=== PATIENT | female | born 1970 | race Caucasian/White ===

== ENCOUNTER → 2018-01-20 | Outpatient (CLI) | payer BC ==
--- NOTE | 2018-01-24 11:23 | MM ---
Reason for exam: screening (asymptomatic). Last mammogram was performed 7 years and 2 months ago. History: Reductions of both breasts, 2005. Took hormonal contraceptives for 10 years. Physical Findings: A clinical breast exam by your physician is recommended on an annual basis and results should be correlated with mammographic findings. MG Screening Mammo w CAD Bilateral CC and MLO view(s) were taken. XCCL view(s) were taken of the left breast. Prior study comparison: November 10, 2010, CAD bilateral diagnostic mammogram. The breast tissue is heterogeneously dense. This may lower the sensitivity of mammography. No suspicious abnormality. No significant changes when compared with prior studies. ASSESSMENT: Negative, BI-RAD 1 RECOMMENDATION: Routine screening mammogram of both breasts in 1 year.
== END | disposition home or self-care (01) ==
LOC: RADMAMWWP 15:15
PROVIDERS: ATTEND Internal Medicine
DX: Z12.31 Encounter for screening mammogram for malignant neoplasm of breast (principal)
CPT/HCPCS: 77067

== ENCOUNTER → 2019-08-07 | Outpatient (CLI) | payer BC ==
[2019-08-07 10:49] LABS: Basophils % (A) 0 %; Eosinophils # (A) 0.1 k/uL (0-0.7); Eosinophils % (A) 3 %; HCT 40.8 % (34.0-46.0); HGB 13.6 gm/dL (11.4-16.0); Lymphocytes # (A) 1.7 k/uL (1.0-4.8); Lymphocytes % (A) 38 %; MCH 31.8 pg (25.0-35.0); MCHC 33.3 g/dL (31.0-37.0); MCV 95.6 fL (80.0-100.0); Mean Platelet Volume 7.4; Monocytes # (A) 0.3 k/uL (0-1.0); Monocytes % (A) 7 %; Neutrophils # (A) 2.3 k/uL (1.3-7.7); Neutrophils % (A) 51 %; Platelet Count 272 k/uL (150-450); RBC 4.27 m/uL (3.80-5.40); RDW 12.1 % (11.5-15.5); WBC 4.5 k/uL (3.8-10.6)
[2019-08-07 17:08] LABS: African American GFR (CKD) 118.7 (60.0-200.0); Albumin 4.1 g/dL (3.80-4.90); Albumin/Globulin Ratio 2.28 (1.60-3.17); BUN/Creat Ratio 14.29 Ratio (12.00-20.00); Calcium 8.9 mg/dL (8.7-10.3); Chol/HDL Ratio 2.17; Globulin 1.8 g/dL (1.6-3.3); LDL Cholesterol,Calculated 74.4 mg/dL (0.0-131.0); Non-African American GFR(CKD) 102.5 (60.0-200.0); Potassium 4.1 mmol/L (3.5-5.5); Total Bilirubin 0.7 mg/dL (0.2-1.2); Total Protein 5.9 g/dL (6.2-8.2); VLDL Calculation 21.6 mg/dL (5.00-40.00)
== END | disposition home or self-care (01) ==
LOC: LABWHC1 10:06
PROVIDERS: ATTEND Internal Medicine
DX: Z00.01 Encounter for general adult medical examination with abnormal findings (principal)
CPT/HCPCS: 36415; 80053; 80061; 85025

== ENCOUNTER → 2019-09-13 | Outpatient (CLI) | payer BC ==
--- NOTE | 2019-09-14 11:33 | MM ---
Reason for exam: screening (asymptomatic). Last mammogram was performed 1 year and 8 months ago. History: Reductions of both breasts, 2005. Took hormonal contraceptives for 10 years. Physical Findings: A clinical breast exam by your physician is recommended on an annual basis and results should be correlated with mammographic findings. MG Screening Mammo w CAD Bilateral CC and MLO view(s) were taken. Prior study comparison: January 20, 2018, bilateral MG screening mammo w CAD. November 10, 2010, CAD bilateral diagnostic mammogram. The breast tissue is heterogeneously dense. This may lower the sensitivity of mammography. There are benign appearing round linear calcifications bilaterally. There is no discrete abnormality. ASSESSMENT: Benign, BI-RAD 2 RECOMMENDATION: Routine screening mammogram of both breasts in 1 year.
== END | disposition home or self-care (01) ==
LOC: RADMAMWWP 15:46
PROVIDERS: ATTEND Internal Medicine
DX: Z12.31 Encounter for screening mammogram for malignant neoplasm of breast (principal)
CPT/HCPCS: 77067

== ENCOUNTER → 2020-06-28 | Outpatient (CLI) | payer BC | END | disposition home or self-care (01) | LOC: LABWHC1 15:37 | PROVIDERS: ATTEND Internal Medicine | DX: R43.0 Anosmia (principal); R09.89 Other specified symptoms and signs involving the circulatory and respiratory systems | CPT/HCPCS: U0003; C9803 ==

== ENCOUNTER → 2021-01-14 | Outpatient (CLI) | payer BC ==
--- NOTE | 2021-01-15 10:35 | MM ---
Reason for exam: screening (asymptomatic). Last mammogram was performed 1 year and 4 months ago. History: Reductions of both breasts, 2005. Took hormonal contraceptives for 10 years. Physical Findings: A clinical breast exam by your physician is recommended on an annual basis and results should be correlated with mammographic findings. MG Screening Mammo w CAD Bilateral CC and MLO view(s) were taken. Prior study comparison: September 13, 2019, bilateral MG screening mammo w CAD. January 20, 2018, bilateral MG screening mammo w CAD. There are scattered fibroglandular densities. No significant changes when compared with prior studies. ASSESSMENT: Benign, BI-RAD 2 RECOMMENDATION: Routine screening mammogram of both breasts in 1 year.
== END | disposition home or self-care (01) ==
LOC: RADMAMWWP 07:41
PROVIDERS: ATTEND Internal Medicine
DX: Z12.31 Encounter for screening mammogram for malignant neoplasm of breast (principal)
CPT/HCPCS: 77067

== ENCOUNTER → 2022-04-24 | Outpatient (CLI) | payer BC ==
--- NOTE | 2022-05-01 17:50 | MM ---
Reason for Exam: Screening (asymptomatic). Last mammogram was performed 1 year(s) and 3 month(s) ago. Patient History: Menarche at age 15. First Full-Term at age 27. Hysterectomy at age 45. Postmenopausal. Patient used Hormonal Contraceptives for 10 years. 2004, Bilateral Reduction. Risk Values: Jennifer 5 year model risk: 1.0%. NCI Lifetime model risk: 8.9%. Prior Study Comparison: 11/10/2010 Bilateral Diagnostic Mammogram, [facility]. 01/20/2018 Bilateral Screening Mammogram, [facility]. 09/13/2019 Bilateral Screening Mammogram, [facility]. 01/14/2021 Bilateral Screening Mammogram, [facility]. Tissue Density: There are scattered fibroglandular densities. Findings: Analyzed By CAD. There is no suspicious group of microcalcifications or new suspicious mass in either breast. Overall Assessment: Negative, BI-RAD 1 Management: Screening Mammogram of both breasts in 1 year. A clinical breast exam by your physician is recommended on an annual basis and results should be correlated with mammographic findings. Electronically signed and approved by: Angel Waldrop DO
== END | disposition home or self-care (01) ==
LOC: RADMAMWWP 08:00
PROVIDERS: ATTEND Internal Medicine
DX: Z12.31 Encounter for screening mammogram for malignant neoplasm of breast (principal)
CPT/HCPCS: 77067

== ENCOUNTER 2024-02-22 11:32 | Emergency (ER) | payer BC ==
[2024-02-22 11:38] VITALS: TEMP 97.9
--- NOTE | 2024-02-22 11:56 | ED ---
Back Pain HPI - General Chief Complaint: Back Pain/Injury Stated Complaint: back pain Time Seen by Provider: 02/22/24 11:42 Source: patient, EMS, RN notes reviewed Mode of arrival: EMS Limitations: no limitations - History of Present Illness Initial Comments: 53-year-old female presents emergency department chief complaints of low back pain. Patient states she was reaching into a closet states there is reaching up when she started feeling tightness in her back states that she had increasing pain to the point where it is difficult to sit up, movement there is no comfortable position other than laying her back with her knees bent up. Patient denies any bowel, bladder and cons retention no saddle anesthesias no lower extremity symptoms including pain or paresthesias. - Related Data Previous Rx's Medication Instructions Recorded Cyclobenzaprine [Flexeril] 10 mg PO TID PRN #15 tab 02/22/24 HYDROcodone/APAP 7.5-325MG [[place] 1 tab PO Q6HR PRN 3 Days #12 tab 02/22/24 7.5-325] predniSONE 50 mg PO DAILY #5 tab 02/22/24 Allergies Allergy/AdvReac Type Severity Reaction Status Date / Time No Known Allergies Allergy Verified 02/22/24 13:49 Review of Systems ROS Statement: Those systems with pertinent positive or pertinent negative responses have been documented in the HPI. ROS Other: All systems not noted in ROS Statement are negative. Past Medical History Additional Past Medical History / Comment(s): hx. migraine headaches History of Any Multi-Drug Resistant Organisms: None Reported Past Surgical History: Breast Surgery, Hysterectomy, Orthopedic Surgery Additional Past Surgical History / Comment(s): breast reduction Past Anesthesia/Blood Transfusion Reactions: No Reported Reaction Past Psychological History: No Psychological Hx Reported Smoking Status: Former smoker Past Alcohol Use History: Occasional Past Drug Use History: None Reported - Past Family History Mother Family Medical History: No Reported History General Exam Limitations: no limitations General appearance: alert, in no apparent distress Head exam: Present: atraumatic, normocephalic, normal inspection Neck exam: Present: normal inspection, full ROM. Absent: tenderness, meningismus, lymphadenopathy Respiratory exam: Present: normal lung sounds bilaterally. Absent: respiratory distress, wheezes, rales, rhonchi, stridor Cardiovascular Exam: Present: regular rate, normal rhythm, normal heart sounds. Absent: systolic murmur, diastolic murmur, rubs, gallop, clicks GI/Abdominal exam: Present: soft, normal bowel sounds. Absent: distended, tenderness, guarding, rebound, rigid Extremities exam: Present: normal inspection, full ROM, normal capillary refill, other (Pulses and strength equal bilaterally lower extremity equal color, equal warmth). Absent: tenderness, pedal edema, joint swelling, calf tenderness Back exam: Present: tenderness, muscle spasm, paraspinal tenderness. Absent: full ROM (Pain with range of motion), vertebral tenderness Neurological exam: Present: reflexes normal. Absent: motor sensory deficit Course Vital Signs 02/22/24 02/22/24 02/22/24 11:35 13:38 15:46 Temperature 97.9 F Pulse Rate 63 52 L 68 Respiratory 20 20 16 Rate Blood Pressure 133/89 108/75 110/76 O2 Sat by Pulse 96 97 98 Oximetry Medical Decision Making - Medical Decision Making Was pt. sent in by a medical professional or institution (, PA, PRACTICE PERFORMANCE MANAGER, urgent care, hospital, or long term...) When possible be specific @ -No Did you speak to anyone other than the patient for history (EMS, parent, family, police, friend...)? What history was obtained from this source @ -No Did you review nursing and triage notes (agree or disagree)? Why? @ -I reviewed and agree with nursing and triage notes Were old charts reviewed (outside hosp., previous admission, EMS record, old EKG, old radiological studies, urgent care reports/EKG's, long term records)? Report findings @ -No old charts were reviewed Differential Diagnosis (chest pain, altered mental status, abdominal pain women, abdominal pain men, vaginal bleeding, weakness, fever, dyspnea, syncope, headache, dizziness, GI bleed, back pain, seizure, CVA, palpatations, mental health, musculoskeletal)? @ -[Differential Back Pain: Strain, zoster, cauda equina syndrome, epidural abscess, vertebral osteomyelitis, discitis, fracture, subluxation, disc herniation, DJD, spinal stenosis, dissection, AAA, pancreatitis, peptic ulcer disease, pyelonephritis, kidney stone, this is not meant to be an all-inclusive list. EKG interpreted by me (3pts min.). @ -None X-rays interpreted by me (1pt min.). @ -X-ray lumbar spine show no acute osseous abnormality CT interpreted by me (1pt min.). @ -CT lumbar spine showing L5-S1 disc bulging U/S interpreted by me (1pt. min.). @ -None done What testing was considered but not performed or refused? (CT, X-rays, U/S, labs)? Why? @ -None What meds were considered but not given or refused? Why? @ -None Did you discuss the management of the patient with other professionals (professionals i.e. , PA, PRACTICE PERFORMANCE MANAGER, lab, RT, psych nurse, social sciences lecturer, architecture technician, teacher, commercial loan officer, spring encaser)? Give summary @ -No Was smoking cessation discussed for >3mins.? @ -No Was critical care preformed (if so, how long)? @ -No Were there social determinants of health that impacted care today? How? (Homelessness, low income, unemployed, alcoholism, drug addiction, transportation, low edu. Level, literacy, decrease access to med. care, fpc, rehab)? @ -No Was there de-escalation of care discussed even if they declined (Discuss DNR or withdrawal of care, Hospice)? DNR status @ -No What co-morbidities impacted this encounter? (DM, HTN, Smoking, COPD, CAD, Cancer, CVA, ARF, Chemo, Hep., AIDS, mental health diagnosis, sleep apnea, morbid obesity)? @ -None Was patient admitted / discharged? Hospital course, mention meds given and route, prescriptions, significant lab abnormalities, going to OR and other pertinent info. @ -Patient has lumbar disc bulge, strain of her lumbar spine patient has no red flag symptoms discharge after analgesics, urates and muscle relaxers. Return parameters were discussed. Undiagnosed new problem with uncertain prognosis? @ -No Drug Therapy requiring intensive monitoring for toxicity (Heparin, Nitro, Insulin, Cardizem)? @ -No Were any procedures done? @ -No Diagnosis/symptom? @ -Lumbar strain, disc bulging lumbar Acute, or Chronic, or Acute on Chronic? @ -Acute Uncomplicated (without systemic symptoms) or Complicated (systemic symptoms)? @ -Uncomplicated Side effects of treatment? @ -No Exacerbation, Progression, or Severe Exacerbation? @ -No Poses a threat to life or bodily function? How? (Chest pain, [place], [place], pneumonia, PE, COPD, DKA, ARF, appy, cholecystitis, CVA, Diverticulitis, Homicidal, Suicidal, threat to staff... and all critical care pts) @ -No Disposition Clinical Impression: Bulging lumbar disc, Strain of lumbar region Disposition: HOME SELF-CARE Condition: Stable Instructions (If sedation given, give patient instructions): Acute Low Back Pain (ED) Additional Instructions: Please return to the Emergency Department if symptoms worsen or any other concerns. Prescriptions: Cyclobenzaprine [Flexeril] 10 mg PO TID PRN #15 tab PRN Reason: Muscle Spasm HYDROcodone/APAP 7.5-325MG [[place] 7.5-325] 1 tab PO Q6HR PRN 3 Days #12 tab PRN Reason: pain predniSONE 50 mg PO DAILY #5 tab Is patient prescribed a controlled substance at d/c from ED?: Yes When asked, does pt state using other controlled substances?: No If prescribed controlled substance>3 days was MAPS reviewed?: Prescribed <3 Days If opioid is for acute pain is fill amount 7 days or less?: Yes If Rx opioid, was Start Talking consent form obtained?: Yes Referrals: Alka Thakkar MD [Primary Care Provider] - 1-2 days Luis Alfredo Agee DO [Doctor of Osteopathic Medicine] - 1-2 days Time of Disposition: 15:35
[2024-02-22] MEDS: KETOROLAC 15 MG/ML 1 ML VIAL IVP STA (11:59)
[2024-02-22] MEDS: ORPHENADRINE 30 MG/ML 2 ML VIAL IVP STA (11:59)
[2024-02-22] MEDS: HYDROmorphone 0.5 MG/0.5 ML SYRINGE IVP STA ×2 (12:00→13:17)
--- NOTE | 2024-02-22 12:28 | XR ---
EXAMINATION TYPE: XR lumbar spine 2 or 3V DATE OF EXAM: 02/22/2024 CLINICAL HISTORY: pain TECHNIQUE: Three views of the lumbar spine are submitted. COMPARISON: None. FINDINGS: There are 5 lumbar type vertebral bodies identified. The lumbar spine shows satisfactory alignment w ithout evidence of acute fracture or dislocation. Vertebral body heights are within normal limits. Disc spaces are within normal limits. The overlying soft tissue appears unremarkable. IMPRESSION: No acute fracture or dislocation is seen in the lumbar spine.
--- NOTE | 2024-02-22 15:25 | CT ---
EXAMINATION TYPE: CT lumbar spine wo con CT DLP: 811.3 mGycm, Automated exposure control for dose reduction was used. DATE OF EXAM: 02/22/2024 2:58 PM COMPARISON: None . CLINICAL INDICATION:Female, 53 years old with history of pain; PHH, low back pain TECHNIQUE: Multiple axial images were obtained from the midportion of T11 through the sacroiliac zee nts. Soft tissue and bone windows in coronal and sagittal planes were obtained and reviewed. 3- Contrast used: mL of , (None, if empty). Oral contrast used: (None, if empty). FINDINGS: Alignment: There are 5 lumbar type vertebral bodies within normal alignment. Bone: Minimal degeneration with osteophyte formation and facet joint arthropathy. Discs: T12-L1: No spinal canal or neural foraminal stenosis is identified. L1-L2: No spinal canal or neural foraminal stenosis is identified. L2-L3: No spinal canal or neural foraminal stenosis is identified. L3-L4: No spinal canal or neural foraminal stenosis is identified. L4-L5: No spinal canal or neural foraminal stenosis is identified. L5-S1: Disc bulge with possible central protrusion. No spinal canal or neural foraminal stenosis is i dentified. Other: None IMPRESSION: 1. No evidence for spinal fracture. 2. L5-S1 central disc bulge with possible protrusion. Consider further evaluation with MRI.
[2024-02-22] MEDS: HYDROcodone/APAP 7.5-325MG 1 EACH TAB PO ONE (15:42)
[2024-02-22] MEDS: methylPREDNISolone SOD SUCCI 125 MG/2 ML VIAL IV STA (15:42)
[2024-02-22 15:47] VITALS: BP 110/76; PULSE 68; RESP 16
== END 2024-02-22 15:54 | disposition home or self-care (01) ==
LOC: EC 11:32
DX: S39.012A Strain of muscle, fascia and tendon of lower back, initial encounter (principal); Z87.891 Personal history of nicotine dependence; X58.XXXA Exposure to other specified factors, initial encounter
CPT/HCPCS: 72100; 72131; 99284; 96374; 96375 ×4; 96376; J2360; J3360; J1885; J1170; J2919

== ENCOUNTER → 2024-04-28 | Outpatient (CLI) | payer BC ==
--- NOTE | 2024-04-30 17:22 | MM ---
Reason for Exam: Screening (asymptomatic). Last mammogram was performed 2 year(s) and 0 month(s) ago. Patient History: Menarche at age 15. First Full-Term at age 27. Hysterectomy at age 45. Postmenopausal. Patient used Hormonal Contraceptives for 10 years. 2004, Bilateral Reduction. Risk Values: Jennifer 5 year model risk: 1.1%. NCI Lifetime model risk: 8.6%. Prior Study Comparison: 09/13/2019 Bilateral Screening Mammogram, [facility]. 01/14/2021 Bilateral Screening Mammogram, [facility]. 04/24/2022 Bilateral MG screening mammo w CAD, [facility]. Tissue Density: There are scattered areas of fibroglandular density. Findings: Analyzed By CAD. There is no suspicious group of microcalcifications or new suspicious mass in either breast. Overall Assessment: Negative, BI-RAD 1 Management: Screening Mammogram of both breasts in 1 year. . Patient should continue monthly self-breast exams. A clinical breast exam by your physician is recommended on an annual basis. This exam should not preclude additional follow-up of suspicious palpable abnormalities. Note on Jennifer scores and lifetime risk: 1. A Jennifer score greater than 3% is considered moderate risk. If this is the case, consider specialist referral to assess eligibility for a risk reducing agent. 2. If overall lifetime risk for the development of breast cancer is 20% or higher, the patient may qualify for future screening with alternating mammogram and breast MRI. [facility], , 04/30/2024 5:19 PM. Electronically signed and approved by: Trevor Salguero M.D. Radiologist
== END | disposition home or self-care (01) ==
LOC: RADMAMWWP 08:13
PROVIDERS: ATTEND Internal Medicine
DX: Z12.31 Encounter for screening mammogram for malignant neoplasm of breast
CPT/HCPCS: 77067

== ENCOUNTER → 2024-10-26 | Outpatient (CLI) | payer BC ==
[2024-10-26 09:08] LABS: Prothrombin Time 11.1 sec (10.0-12.5)
[2024-10-26 14:50] LABS: HCT 41.8 % (37.2-46.3); HGB 13.7 g/dL (12.0-15.0); MCH 31.5 pg (27.0-32.0); MCHC 32.8 g/dL (32.0-37.0); MCV 96.1 FL (80.0-97.0); Mean Platelet Volume 10.9 FL (9.5-12.2); NRBC Per 100 WBC 0 X 10*3/uL (0.00-0.01); Platelet Count 280 X 10*3/uL (140-440); RBC 4.35 X 10*6/uL (4.10-5.20); WBC 3.88 X 10*3/uL (4.50-10.00)
[2024-10-26 15:14] LABS: ALT 15 U/L (8-44); AST 24 U/L (13-35); Albumin 4.2 g/dL (3.8-4.9); Albumin/Globulin Ratio 1.75 Ratio (1.60-3.17); Alkaline Phosphatase 74 U/L (41-126); BUN/Creat Ratio 18.71 Ratio (12.00-20.00); Blood Urea Nitrogen 13.1 mg/dL (9.0-27.0); Calcium 9.4 mg/dL (8.7-10.3); Carbon Dioxide 24.2 mmol/L (21.6-31.8); Chloride 106 mmol/L (96-109); Globulin 2.4 g/dL (1.6-3.3); Glucose 97 mg/dL (70-110); Potassium 4.2 mmol/L (3.5-5.5); Sodium 141 mmol/L (135-145); Total Bilirubin 0.8 mg/dL (0.3-1.2); Total Protein 6.6 g/dL (6.2-8.2)
== END | disposition home or self-care (01) ==
LOC: LABPAT 08:04
PROVIDERS: ATTEND Orthopaedic Surgery
DX: Z01.818 Encounter for other preprocedural examination (principal); Z22.322 Carrier or suspected carrier of Methicillin resistant Staphylococcus aureus; M17.12 Unilateral primary osteoarthritis, left knee
CPT/HCPCS: 80053; 83036; 85027; 85610; 85730; 87070; 93005

== ENCOUNTER → 2024-11-01 | Outpatient (CLI) | payer BC ==
--- NOTE | 2024-11-01 11:35 | CT ---
EXAMINATION TYPE: CT left knee - [facility] Protocol DATE OF EXAM: 11/01/2024 11:28 AM COMPARISON: None. CLINICAL INDICATION: Female, 54 years old with history of M17.12 OSTEOARTHRITIS KNEE, Pre-surgical fo r knee replacement., TECHNIQUE: Axial CT was performed with sagittal and coronal reformats. 3D reconstruction performed on a separate workstation. IV CONTRAST: , patient injected with mL of . (None if empty) CT DLP: 538.2 mGycm, Automated exposure control for dose reduction was used. FINDINGS: Severe narrowing medial tibiofemoral joint space of the left knee. Mild widening lateral tibial femor al joint space. Intracondylar spur formation seen. Patellofemoral joint space appears to be fairly we ll preserved. Subchondral sclerosis tibial plateau. No bony lesions seen about the left femur. Mild j oint narrowing left hip joint space. Left ankle is unremarkable. IMPRESSION: 1. Preoperative planning for osteoarthritis of the knee. [facility], , 11/01/2024 11:32 AM
== END | disposition home or self-care (01) ==
LOC: RADCTMAIN 10:28
PROVIDERS: ATTEND Orthopaedic Surgery
DX: M17.12 Unilateral primary osteoarthritis, left knee (principal)

== ENCOUNTER → 2024-11-17 | Day surgery (SDC) | payer BC ==
[2024-11-14 13:21] VITALS: BMI 26.5
[~2024-11-17] MED LIST: DEXAMETHASONE SOD PHOSPHATE 4 MG/ML 1 ML VIAL IV ONE; DEXAMETHASONE SOD PHOSPHATE 4 MG/ML 1 ML VIAL ONE; GLYCOPYRROLATE 0.2 MG/ML 2 ML VIAL ONE; HYDROcodone/APAP 10-325MG 1 EACH TAB PO PRN; HYDROcodone/APAP 5-325MG 1 EACH TAB PO PRN; HYDROmorphone 0.5 MG/0.5 ML SYRINGE IVP PRN; HYDROmorphone 1 MG/ML 1 ML SYRINGE IVP PRN; HYDROmorphone 2 MG/ML 1 ML SYRINGE IVP PRN; LIDOCAINE 1% (10MG/ML) FOR IV START INTRADERMA PRN; LIDOCAINE 1% INJ 10MG/ML (20 ML MDV) ONE; NALOXONE 0.4 MG/ML 1 ML VIAL IV PRN; NEOSTIGMINE 1 MG/ML 10 ML VIAL ONE; ONDANSETRON 4 MG/2 ML VIAL IVP PRN; PHENYLEPHRINE 10 MG/ML VIAL ONE; PROPOFOL 10 MG/ML 20 ML VIAL IV ONE; ROCURONIUM 10 MG/ML (5 ML VIAL) IV ONE; ROPIVACAINE 5 MG/ML 30 ML VIAL ONE; SODIUM CHLORIDE 0.9% 1,000 ML IV SCH; SUCCINYLCHOLINE CHLORIDE 200 MG/10 ML VIAL IV ONE; TRANEXAMIC 1,000 MG/100ML-NACL 1,000 MG in SALINE 1 100ML.BAG IV PRN; TRANEXAMIC 1,000 MG/100ML-NACL 1,000 MG in SALINE 1 100ML.BAG IVPB PRN; TRANEXAMIC 1,000 MG/100ML-NACL PREMIX BAG ONE; ePHEDrine 50 MG/ML 1 ML VIAL ONE; fentaNYL (PF) 50 MCG/ML 2 ML AMP IVP PRN; fentaNYL (PF) 50 MCG/ML 2 ML AMP ONE
[2024-11-17] MEDS: ACETAMINOPHEN TAB 500 MG TAB PO PRN (06:43)
[2024-11-17] MEDS: oxyCODONE ER 10 MG TAB.ER.12H PO PRN (06:43)
[2024-11-17] MEDS: DOCUSATE 100 MG CAP PO PRN (06:43)
[2024-11-17] MEDS: LACTATED RINGERS 1,000 ML IV SCH (06:44)
[2024-11-17] MEDS: IV FLUID CONTINUATION 1,000 ML IV ONE (06:55)
[2024-11-17] MEDS: FAMOTIDINE 20 MG/2 ML VIAL IVP PRN (06:55)
[2024-11-17] MEDS: DEXAMETHASONE SOD PHOSPHATE 10 MG/ML 1 ML VIAL IV PRN (06:55)
[2024-11-17] MEDS: ONDANSETRON 4 MG/2 ML VIAL IVP ONE (06:55)
[2024-11-17] MEDS: KETOROLAC 15 MG/ML 1 ML VIAL IVP PRN (06:55)
[2024-11-17] MEDS: MIDAZOLAM 2 MG/2 ML VIAL IV PRN (07:14)
[2024-11-17] MEDS: ROPIVACAINE/EPI/CLONIDINE/KET 50 ML SYRINGE MISCELLANE PRN (08:17)
[2024-11-17] MEDS: LACTATED RINGERS 1,000 ML IV ONE (08:54)
--- NOTE | 2024-11-17 09:22 | P.OP ---
Date of Procedure: 11/17/24 Preoperative Diagnosis: 1. Left medial compartment arthritis knee Postoperative Diagnosis: Same Procedure(s) Performed: 1. Left unicompartmental knee arthroplasty, medial 2. Computer assisted musculoskeletal navigation using CT/MRI images Implants: 1. Restoris MCK Femur Size 4 2. Restoris MCK Tibia Size 3 3. Sharad X3 Uni insert Size 3, 8-mm Anesthesia: GETA, regional Surgeon: Betito Barnes Judge Clerk #1: Feliciano Diaz Estimated Blood Loss (ml): 100 IV fluids (ml): 800 Pathology: none sent Condition: stable Disposition: PACU Indications for Procedure: I met with the patient preoperatively in the office setting and discussed treatment of their symptomatic knee arthritis. The patient has isolated pain over the medial compartment and has imaging confirming isolated medial compartment arthritis. We discussed the pros and cons of a partial versus total knee replacement. Based on the patient's imaging and clinical exam I think that there are good candidate for a partial medial knee replacement. We discussed the benefits of this compared to conventional total knee replacement including faster recovery and a more normal feeling knee. We discussed the limitations in a partial knee replacement particularly progression of arthritis in the patellofemoral and lateral compartment. The patient understood this and agreed to proceed with a partial knee replacement. I discussed the potential risks and complications at length and gave them ample time to ask questions. Risks discussed included: risks from anesthesia, superficial site surgical infection, acute and/or chronic periprosthetic joint infection, delayed wound healing, drainage, wound necrosis, instability, stiffness, stiffness requiring manipulation and/or revision surgery, progression of arthritis in the patellofem oral and lateral compartment, damage to local blood vessels or nerves, aseptic loosening of the implants, extensor mechanism issues including disruption, patellar maltracking, avascular necrosis etc., continued or worsened knee pain, generalized dissatisfaction with surgical outcome, need for revision surgery, an inability to regain preinjury level of function, DVT, PE, other medical complications, and possibly loss of life or limb. The patient voiced their understanding that while these are the most common complications other less common complications are possible. They provided both their verbal and written consent to go forward with surgery. Operative Findings: Full-thickness cartilage loss in the medial compartment with exposed subchondral bone on the femur and tibia. Small area of partial-thickness cartilage loss medial facet of the patella. Full-thickness cartilage without any evidence of arthritis femoral trochlea and lateral compartment. The ACL was probed and found to be intact. Description of Procedure: The patient was identified in preoperative holding and the correct operative extremity was verified and marked with a marker. I reviewed the consent form with the patient at length. All of their questions were answered. The patient was given a block by anesthesia. They were then brought back to the operating room. They were transferred onto the operating room table where a general anesthetic, preoperative antibiotics, and tranexamic acid were administered by anesthesia. A tourniquet was applied to the proximal aspect of the operative extremity. The contralateral extremity was padded under the heel and secured to the operating room table with a nonsterile blue towel and tape. The ipsilateral arm was carefully draped across the patient's chest and secured with a pillow and foam. A post was applied over the lateral aspect of the ipsilateral thigh and a bolster was placed under the ipsilateral foot. I verified that the operative extremity was stable and the knee was flexed to 90. The operative extremity was then placed in a leg snow, nonsterile drapes were applied, and the extremity was prepped and draped sterilely in the standard sterile fashion. Prior to starting surgery timeout was performed identifying the correct patient, operative extremity, and procedure. The leg was then elevated, exsanguinated with an Esmarch bandage, and the tourniquet was inflated. An anterior midline incision was made sharply with a scalpel. Once I had dissected deep to the superficial fascial layer medial and lateral flaps were elevated. A medial parapatellar arthrotomy was created taking care to not inadvertently damaged cartilage in the femoral trochlea since a partial medial compartmental arthroplasty was anticipated. Upon opening the knee joint there was severe arthritic changes in the medial compartment, but the patellofemoral and lateral compartment were free from arthritic changes. Having confirmed isolated medial compartment arthritis I proceeded to perform a partial medial compartment arthroplasty. The anterior horn of the medial meniscus was sharply released and a limited medial release was performed around the posterior medial corner of the knee to facilitate retractor placement. A small portion of the fat pad was excised with electrocautery just to allow visualization. The ACL and PCL were probed and found to be intact. 4 mm pins were then placed within the incision in the medial distal femur and proximal tibia. Arrays were applied to the pins and I verified they were completely tightened. The knee was then registered with the [employer] robot and manipulations in implant position were made to balance the knee and opitmize implant position. Using the Kuldeep robotic saw and paola all cuts were made in accordance with our plan. All bony fragments were removed. Local anesthetic was then infiltrated around the joint capsule. Trial implants were then placed within the knee. Range of motion and collateral ligament tension was then evaluated. Once the knee was felt to be appropriately balanced the Kuldeep pins were removed. With the trial components in place, the patella tracked midline. All trial components were then removed from the knee. The knee was thoroughly irrigated with pulsatile lavage. Cement was prepared via vacuum mixing in a bowl on the back table. I then hand pressurized cement into the femur and tibia and placed the implants beginning with the tibial base tray, femoral component, and finally the poly liner. All extruded cement was removed including from the pin sites. Once the cement had hardened the knee was evaluated one final time with the final polyethylene liner in place. The knee had full extension and flexion and felt stable to varus and valgus stress throughout the arc of motion. The tourniquet was released and with the tourniquet down the patella tracked midline. All bleeders were controlled with electrocautery. The knee was thoroughly irrigated using 3 L of sterile saline and pulsatile lavage. The extensor mechanism was then reapproximated using pop off Vicryl sutures followed by a running barbed suture. The knee was then closed in layers with a 0 strata fix for the deep fascial layer, 2-0 strata fix for the superficial subcutaneous layer and Monocryl and Steri-Strips for the skin. A sterile dressing was applied. I verified that all instrument, sponge, and sharp counts were correct. The patient was then transferred off the operating room table, extubated, and brought to recovery having tolerated the procedure well. Feliciano Diaz PA-C was required as a skilled assistant auto center manager due to the complexity of surgery for patient positioning, draping, exposure, retraction, closure of wound and application of dressing. PLAN: The patient can weight-bear as tolerated on the operative extremity. DVT prophylaxis with aspirin 81 mg twice a day based on preoperative risk stratification. The patient is going to attempt to leave as an outpatient. They can be discharged as long as they passed physical therapy and her pain is controlled. Follow-up in the office in 2 weeks for wound check and x-rays of the knee including an AP and lateral.
[2024-11-17 09:43] VITALS: TEMP 97.4
--- NOTE | 2024-11-17 11:09 | XR ---
EXAMINATION TYPE: XR knee limited 2 views LT DATE OF EXAM: 11/17/2024 10:47 AM COMPARISON: None CLINICAL INDICATION: Female, 54 years old with history of Evaluation for Postop abnormality and align ment; PHH, pain FINDINGS: Images show placement of medial sided unicompartmental arthroplasty. Both femoral and tibia l components of the prosthesis appear well seated. Anterior soft tissue swelling with scattered soft tissue air as well as intra-articular air related to recent operation. IMPRESSION: Uncomplicated postoperative appearance medial unicompartmental arthroplasty. [facility], Workstation: [facility], 11/17/2024 11:07 AM
[2024-11-17 11:22] VITALS: RESP 16
[2024-11-17 11:37] VITALS: BP 119/75
[2024-11-17 11:38] VITALS: PULSE 67
--- NOTE | 2024-11-19 17:08 | P.ANPRN ---
Procedure Note - Anesthesia - Nerve Block Performed Left Adductor Canal Single Time Out Performed: Yes Date of Procedure: 11/18/03 Procedure Start Time: 07:14 Procedure Stop Time: 07:17 Location of Patient: PreOp Indication: Acute Post-Operative Pain, Requested by Surgeon Sedation Type: Sedate with meaningful contact maintained Preparation: Sterile Prep Position: Supine Needle Types: Pajunk Needle Gauge: 21 Ultrasound used to visualize needle placement: Yes Ultrasound used to observe medication spread: Yes Blood Aspirated: No Pain Paresthesia on Injection Noted: No Resistance on Injection: Normal Image Stored and Saved: Yes Events: Uneventful and Well Tolerated (Ropivacaine 0.5% 20 cc plus dexamethasone 4 mg)
--- NOTE | 2024-11-19 17:09 | P.ANPRN ---
Procedure Note - Anesthesia - Nerve Block Performed Left iPack Single Time Out Performed: Yes Date of Procedure: 11/17/24 Procedure Start Time: 07:18 Procedure Stop Time: 07:20 Location of Patient: PreOp Indication: Acute Post-Operative Pain, Requested by Surgeon Sedation Type: Sedate with meaningful contact maintained Preparation: Sterile Prep Position: Supine Needle Types: Pajunk Needle Gauge: 21 Ultrasound used to visualize needle placement: Yes Ultrasound used to observe medication spread: Yes Blood Aspirated: No Pain Paresthesia on Injection Noted: No Resistance on Injection: Normal Image Stored and Saved: Yes Events: Uneventful and Well Tolerated (Ropivacaine 0.5% 20 cc dexamethasone 4 mg)
== END | disposition home or self-care (01) ==
LOC: OR 05:47
PROVIDERS: ATTEND Orthopaedic Surgery
DX: M17.12 Unilateral primary osteoarthritis, left knee (principal); G89.18 Other acute postprocedural pain; Z79.1 Long term (current) use of non-steroidal anti-inflammatories (NSAID); Z79.891 Long term (current) use of opiate analgesic; Z98.890 Other specified postprocedural states; Z87.828 Personal history of other (healed) physical injury and trauma
CPT/HCPCS: 0055T; 27446; S2900; 64447; 64473